=== PATIENT | female | born 1945 | race Caucasian/White ===

== ENCOUNTER → 2017-02-17 | Outpatient (CLI) | payer MEDICARE, BC ==
[~2017-02-17] MED LIST: AMLO5TAB2 PO; IOHEXOL 240 MG/ML 50ML VIAL. PO ONE; IOHEXOL 300 MG/ML 100ML VIAL. IV ONE
--- NOTE | 2017-02-17 11:03 | KCIC ---
CT abdomen and pelvis with contrast History: Left lower quadrant pain intermittently Technique: After the administration of oral and intravenous contrast, CT imaging was performed of the abdomen and pelvis. Multiplanar images are reviewed. Exposure: One or more of the following individualized dose reduction techniques were utilized for this examination: 1. Automated exposure control 2. Adjustment of the mA and/or kV according to patient size 3. Use of iterative reconstruction technique. Contrast: 84 cc Omnipaque 300 Comparison: None Findings: There is no significant abnormality of the visualized lung bases. There is no significant focal abnormality of the liver, spleen, pancreas, adrenal glands. There is likely steatosis. Both kidneys enhance without hydronephrosis. There has been cholecystectomy. Accurate evaluation of bowel is limited without oral contrast. There is mild diverticulosis of the sigmoid colon. Colon is not opacified with oral contrast and exam for accurate evaluation. Mild wall thickening of the distal descending and proximal sigmoid colon is not excluded although no significant adjacent inflammatory-type change. There is no evidence of bowel obstruction, free fluid, or free air. Normal appendix is visualized. There is retained stool greatest of the right and transverse colon. There has been hysterectomy. There is [id number] degenerative disc disease L3-4. Impression: 1. There is colonic diverticulosis greatest of the sigmoid colon without adjacent inflammatory change. Mild wall thickening of the distal descending and proximal sigmoid colon is not excluded although not distended with contrast during exam for accurate evaluation, mild colitis difficult to entirely exclude. Colon screening is advised if this has not been performed. No other significant acute abnormality is identified 2. There is likely hepatic steatosis. Electronically signed by: Andrea Cobian MD (02/17/2017 10:59 AM) [id number]
== END | disposition home or self-care (01) ==
LOC: KCIC CT 08:24
PROVIDERS: ATTEND Family Medicine
DX: K57.30 Diverticulosis of large intestine without perforation or abscess without bleeding (principal); Z90.49 Acquired absence of other specified parts of digestive tract
CPT/HCPCS: 74177; 82565; Q9966; Q9967